=== PATIENT | male | born 2000 | race Caucasian/White ===

== ENCOUNTER 2021-05-17 11:04 | Emergency (ER) | payer SELFPAY ==
[2021-05-17] MEDS ORDERED: ACETAMINOPHEN 325 MG TAB PO ONE (17:06)
[2021-05-17] MEDS ORDERED: LIDOCAINE-MPF (1%) 10 MG/1 ML VIAL 5 ML INFILTRATI ONE (17:06)
[2021-05-17] MEDS ORDERED: IBUPROFEN 400 MG TAB PO ONE (17:06)
[2021-05-17] MEDS ORDERED: metroNIDAZOLE 500 MG TAB PO ONE (17:06)
[2021-05-17] MEDS ORDERED: AZITHROMYCIN 1 GM ORAL PWDR PACKET PO ONE (17:06)
--- NOTE | 2021-05-17 17:08 | Emergency Department Report ---
ED General Adult HPI - General Chief complaint: Rectal Pain Stated complaint: RECTAL PAIN Time Seen by Provider: 05/17/21 16:40 Source: patient, RN notes reviewed Mode of arrival: Ambulatory Limitations: No Limitations - History of Present Illness Initial comments: During the history and physical examination, I am chaperoned by BHAVANA Prado The patient is a 20-year-old gentleman who presents to the ER with a complaint of rectal pain for a week and 1/2 to 2 weeks. The patient reports having participated in receptive anal intercourse with a male partner a week and 1/2 to 2 weeks ago, without condoms. He reports using normal lubricant. He denies perennial pain, dysuria, and testicular pain. He does report some mild dyschezia. He denies bright red blood per rectum. He thinks he might be having discharge, but he is not certain. He denies additional injuries and complaints. -: Gradual Consistency: constant Improves with: rest Worsens with: other (Defecation and palpation) Associated Symptoms: denies other symptoms - Related Data Previous Rx's Medication Instructions Recorded Last Taken Type Acetaminophen [Non-Aspirin Extra 500 mg PO Q6HR PRN #30 tablet 05/17/21 Unknown Rx Strength] Ibuprofen [Motrin] 600 mg PO Q8H PRN #30 tablet 05/17/21 Unknown Rx metroNIDAZOLE [Flagyl] 500 mg PO Q12HR #13 tab 05/17/21 Unknown Rx Allergies Allergy/AdvReac Type Severity Reaction Status Date / Time No Known Allergies Allergy Verified 05/17/21 11:44 ED Review of Systems ROS: Stated complaint: RECTAL PAIN Other details as noted in HPI Comment: All other systems reviewed and negative Gastrointestinal: other (Rectal pain, pain with defecation) ED Past Medical Hx - Medications Home Medications: Home Medications Medication Instructions Recorded Confirmed Last Taken Type Acetaminophen [Non-Aspirin Extra 500 mg PO Q6HR PRN #30 tablet 05/17/21 Unknown Rx Strength] Ibuprofen [Motrin] 600 mg PO Q8H PRN #30 tablet 05/17/21 Unknown Rx metroNIDAZOLE [Flagyl] 500 mg PO Q12HR #13 tab 05/17/21 Unknown Rx ED Physical Exam - General Limitations: No Limitations General appearance: alert, in no apparent distress - Head Head exam: Present: atraumatic, normocephalic - Eye Eye exam: Present: normal appearance, EOMI. Absent: nystagmus - ENT ENT exam: Present: normal exam, normal orophraynx, mucous membranes moist, normal external ear exam - Neck Neck exam: Present: normal inspection, full ROM. Absent: tenderness, meningismus - Respiratory Respiratory exam: Present: normal lung sounds bilaterally. Absent: respiratory distress, wheezes, rales, rhonchi, stridor, decreased breath sounds - Cardiovascular Cardiovascular Exam: Present: regular rate, normal rhythm, normal heart sounds. Absent: bradycardia, tachycardia, irregular rhythm, systolic murmur, diastolic murmur, rubs, gallop - GI/Abdominal GI/Abdominal exam: Present: soft, normal bowel sounds. Absent: distended, tenderness, guarding, rebound, rigid, pulsatile mass - Rectal Rectal exam: Present: normal inspection, normal rectal tone, other (Chaperoned by nurse Eli. There is normal rectal tone. There is mild internal rectal tenderness. There is no redness, obvious pus, streaking or discharge). Absent: black stool, bloody stool - exam: Present: normal inspection. Absent: testicular tenderness External exam: Present: normal external exam, other (There is normal testicular lie. There is normal cremasteric reflex. There is no testicular tenderness. There is no testicular swelling) - Extremities Exam Extremities exam: Present: normal inspection, full ROM, other (2+ pulses noted in the bilateral upper and lower extremities. There is no palpable cord. negative Homans sign. Muscular compartments are soft. The pelvis is stable.). Absent: pedal edema, calf tenderness - Back Exam Back exam: Present: normal inspection, full ROM. Absent: tenderness, CVA tenderness (R), CVA tenderness (L), paraspinal tenderness, vertebral tenderness - Neurological Exam Neurological exam: Present: alert, oriented X3, normal gait, other (No facial droop. Tongue midline. Extraocular movements intact bilaterally. Facial sensation intact to light touch in V1, V2, V3 distribution bilaterally. 5 and a 5 strength in 4 extremities. Sensation intact to light touch in 4 extremities.). Absent: motor sensory deficit - Psychiatric Psychiatric exam: Present: normal affect, normal mood - Skin Skin exam: Present: warm, dry, intact, normal color. Absent: rash ED Course Vital Signs 05/17/21 11:45 Temperature 98.4 F Pulse Rate 84 Respiratory 16 Rate Blood Pressure 120/65 [Left] O2 Sat by Pulse 99 Oximetry ED Medical Decision Making - Lab Data Vital Signs 05/17/21 11:45 Temperature 98.4 F Pulse Rate 84 Respiratory 16 Rate Blood Pressure 120/65 [Left] O2 Sat by Pulse 99 Oximetry - Medical Decision Making Differential diagnosis, including not limited to: Proctitis, high risk sexual behavior, anal fissure Assessment and plan: 20-year-old male who has sex with men, receptive anal intercourse about a week and 1/2 to 2 weeks ago without condoms, now presenting with rectal pain, possible discharge, and pain with defecation. Treat empirically for proctitis with ceftriaxone, azithromycin, and metronidazole. Counseled to avoid sexual activities, take appropriate pain medication, outpatient follow-up with primary care, or health department. Also extensively counseled patient to participate in safe sex practices, and consider outpatient initiation of preexposure prophylaxis. Patient endorses understanding. All questions answered. He does not appear to have an emergent medical condition present at this time. Questionable anal fissure at 6:00. No obvious blood. Sitz bath's and supportive care Critical care attestation.: If time is entered above; I have spent that time in minutes in the direct care of this critically ill patient, excluding procedure time. ED Disposition Clinical Impression: Rectal pain, High risk sexual behavior Disposition: 01 HOME / SELF CARE / HOMELESS Is pt being admited?: No Does the pt Need Aspirin: No Condition: Good Instructions: Preventing HIV Infection and AIDS, Proctitis, Anal Fissure, Adult, How to Take a Sitz Bath Additional Instructions: Cultures were sent today, and results will be available next 3-5 days. Please have your primary care doctor call the medical records department to obtain your culture results. Take the antibiotic therapy as directed. Take the pain medication as directed. I recommend outpatient testing for sexually transmitted diseases, including hepatitis, syphilis and HIV. I also recommend that you abstain from sexual activity until you have completed your antibiotic therapy, a physician states that it is safe for you to resume sexual activity, and any partners that you have been sexually active with have been tested/treated/evaluated for sexual transmitted diseases. Please follow-up with physician within 10 days I recommend that you return to the ER right away with worsening pain, migration of pain, intractable nausea/vomiting, inability tolerate liquid feeds. Take the antibiotics as directed. Do not consume alcohol. Take the prescribed pain medications as needed and directed. Referrals: [facility] [Provider Group] - 3-5 Days [facility] [Outside] - 3-5 Days Forms: Work/School Release Form(ED)
[2021-05-17] MEDS ORDERED: LIDOCAINE (1%) 10 MG/1 ML VIAL 20 ML MDV INFILTRATI ONE (17:30)
[2021-05-17 18:33] VITALS: BP 110/78
== END 2021-05-17 18:25 | disposition home or self-care (01) ==
LOC: ED 11:04
DX: K62.89 Other specified diseases of anus and rectum (principal); Z72.51 High risk heterosexual behavior
CPT/HCPCS: 87591; 96372; 99283; J0696; J3490; 99282